=== PATIENT | male | born 1980 | race African-American/Black ===

== ENCOUNTER 2017-11-05 07:35 | Emergency (ER) | payer MEDICAID ==
[~2017-11-05] VITALS: Ht 165.1 cm; Wt 99.8 kg
[~2017-11-05 07:35] MED LIST: HYDR25TA4 PO; LORA-654 GT; NIFE90TA30 PO
[2017-11-05 08:04] LABS: Basophils # (auto) 0.1 uL; Basophils % (auto) 1.6 % (0.0-2.0); Eosinophils # (auto) 0.3 uL; Hematocrit 40.3 % (41.0-53.0); Hemoglobin 13.2 g/dL (13.5-17.5); Mean Corpuscular Hemoglobin 24.2 pg (28.0-32.0); Mean Corpuscular Hgb Conc. 32.8 g/dL (32.0-36.0); Mean Corpuscular Volume 73.8 fL (80.0-100.0); Monocytes # (auto) 0.9 uL; Monocytes % (auto) 10.9 % (0.0-12.0); Neutrophils # (auto) 4.5 uL; Neutrophils % (auto) 57.5 % (37.0-80.0); Nucleated Red Blood Cells % 0.1 %; Platelet Count (auto) 258 10^3/uL (140-450); Red Blood Cells 5.46 10^6/uL (4.5-5.90); Red Cell Distribution Width 16.7 % (11.8-14.3); White Blood Cell 7.9 10^3/uL (4.4-10.8)
[2017-11-05 08:38] LABS: Alanine Aminotransferase 292 U/L (16-61); Albumin 3.7 g/dL (3.4-5.0); Alkaline Phosphatase 133 U/L (45-117); Anion Gap 20 (5-15); Aspartate Aminotransferase 343 U/L (15-37); BUN/Creatinine Ratio 6.7; Bilirubin, Total 0.8 mg/dL (0.2-1.0); Blood Urea Nitrogen 7 mg/dL (7-18); Calcium 8.8 mg/dL (8.5-10.1); Carbon Dioxide 20 mmol/L (21-32); Chloride 94 mmol/L (98-107); GFR African American 102 mL/min; GFR Non-African American 84 mL/min; Glucose 110 mg/dL (74-106); Sodium 134 mmol/L (136-145); Total Protein 8.8 g/dL (6.4-8.2)
[2017-11-05 08:44] LABS: Potassium 2.4 mmol/L (3.5-5.1)
[2017-11-05] MEDS ORDERED: SODIUM CHLORIDE 0.9% 1,000 ML IV ONE ×2 (09:26)
[2017-11-05] MEDS ORDERED: POTASSIUM CHL 10% (20 MEQ/15ML) 15ml ORAL SOLN PO ONE ×2 (09:30→11:30)
[2017-11-05 10:38] VITALS: BP 151/94
[2017-11-05 10:59] LABS: Urine Bacteria NONE SEEN /hpf (None Seen); Urine Blood TRACE /uL (Negative); Urine Hyaline Cast FEW /lpf (0 - 2); Urine Mucus FEW (None Seen); Urine Specific Gravity 1.013 (1.001-1.035); Urine WBC 3 /hpf (0 - 3)
[2017-11-05 11:02] LABS: Amphetamine Screen, Urine NEGATIVE (NEGATIVE); Barbiturate Scree,Urine NEGATIVE (NEGATIVE); Benzodiazephine Screen, Urine NEGATIVE (NEGATIVE); Cannabinoid Screen, Urine NEGATIVE (NEGATIVE); Cocaine Screen, Urine NEGATIVE (NEGATIVE); Opiate Scree,Urine NEGATIVE (NEGATIVE); Phencyclidine Screen, Urine NEGATIVE (NEGATIVE)
== END 2017-11-05 12:01 | disposition home or self-care (01) ==
LOC: ER 07:41
DX: E87.6 Hypokalemia (principal); I10 Essential (primary) hypertension; R06.02 Shortness of breath; Z88.1 Allergy status to other antibiotic agents; Z79.899 Other long term (current) drug therapy
CPT/HCPCS: 36415; 70450; 80053; 80307; 81001; 84132; 84484; 85025; 93005; 96360; 96361; 99285; J7030

== ENCOUNTER 2018-04-02 16:43 | Emergency (ER) | payer MEDICAID ==
[~2018-04-02] VITALS: Ht 165.1 cm; Wt 102.1 kg
[2018-04-02 18:02] LABS: Urine Bacteria NONE SEEN /hpf (None Seen); Urine Blood TRACE /uL (Negative); Urine Specific Gravity 1.011 (1.001-1.035); Urine WBC 2 /hpf (0 - 3)
[2018-04-02 18:04] LABS: Eosinophils # (auto) 0.1 uL; Eosinophils % (auto) 0.6 % (0.0-7.0); Lymphocytes # (auto) 3.2 uL; Mean Corpuscular Volume 77.4 fL (80.0-100.0); Neutrophils # (auto) 5.5 uL; Nucleated Red Blood Cells % 0.1 %
[2018-04-02 18:06] LABS: Basophils # (auto) 0.2 uL; Basophils % (auto) 1.7 % (0.0-2.0); Hematocrit 39.2 % (41.0-53.0); Hemoglobin 13.2 g/dL (13.5-17.5); Lymphocytes % (auto) 33.4 % (10.0-50.0); Mean Corpuscular Hgb Conc. 33.6 g/dL (32.0-36.0); Monocytes # (auto) 0.7 uL; Monocytes % (auto) 6.8 % (0.0-12.0); Neutrophils % (auto) 57.5 % (37.0-80.0); Platelet Count (auto) 308 10^3/uL (140-450); Red Blood Cells 5.06 10^6/uL (4.5-5.90); Red Cell Distribution Width 16.5 % (11.8-14.3); White Blood Cell 9.6 10^3/uL (4.4-10.8)
[2018-04-02 18:16] LABS: Alanine Aminotransferase 74 U/L (16-61); Albumin 3.8 g/dL (3.4-5.0); Anion Gap 12 (5-15); Aspartate Aminotransferase 79 U/L (15-37); BUN/Creatinine Ratio 7.7; Blood Urea Nitrogen 6 mg/dL (7-18); Calcium 7.8 mg/dL (8.5-10.1); Carbon Dioxide 24 mmol/L (21-32); Chloride 102 mmol/L (98-107); GFR African American 143 mL/min; GFR Non-African American 118 mL/min; Glucose 98 mg/dL (74-106); Potassium 3.2 mmol/L (3.5-5.1); Sodium 138 mmol/L (136-145)
[2018-04-02 18:18] LABS: Amphetamine Screen, Urine NEGATIVE (NEGATIVE); Barbiturate Scree,Urine NEGATIVE (NEGATIVE); Benzodiazephine Screen, Urine NEGATIVE (NEGATIVE); Cannabinoid Screen, Urine NEGATIVE (NEGATIVE); Cocaine Screen, Urine NEGATIVE (NEGATIVE); Opiate Scree,Urine NEGATIVE (NEGATIVE); Phencyclidine Screen, Urine NEGATIVE (NEGATIVE)
[2018-04-02 18:21] LABS: Alkaline Phosphatase 105 U/L (45-117); Bilirubin, Total 0.5 mg/dL (0.2-1.0); Total Protein 8.5 g/dL (6.4-8.2)
[2018-04-02 20:10] VITALS: BP 141/84
== END 2018-04-02 20:32 | disposition home or self-care (01) ==
LOC: ER 16:52
DX: F41.9 Anxiety disorder, unspecified (principal); F10.929 Alcohol use, unspecified with intoxication, unspecified; I10 Essential (primary) hypertension; Y90.0 Blood alcohol level of less than 20 mg/100 ml; Z88.1 Allergy status to other antibiotic agents
CPT/HCPCS: 36415; 70450; 71046; 80053; 80307; 81001; 84484; 85025; 93005

== ENCOUNTER 2018-06-15 07:39 | Emergency (ER) | payer MEDICAID ==
[~2018-06-15] VITALS: Ht 162.6 cm; Wt 102.2 kg
[2018-06-15 08:02] VITALS: BP 136/87
[2018-06-15 09:22] LABS: Urine Bacteria FEW /hpf (None Seen); Urine Blood 3+ /uL (Negative); Urine Hyaline Cast MANY /lpf (0 - 2); Urine Mucus FEW (None Seen); Urine Specific Gravity 1.025 (1.001-1.035); Urine WBC 20 /hpf (0 - 3)
== END 2018-06-15 09:57 | disposition home or self-care (01) ==
LOC: ER 07:39
DX: R19.7 Diarrhea, unspecified (principal); N39.0 Urinary tract infection, site not specified; R21 Rash and other nonspecific skin eruption; M79.642 Pain in left hand; M79.641 Pain in right hand; Z88.1 Allergy status to other antibiotic agents
CPT/HCPCS: 81001; 82962

== ENCOUNTER 2018-11-25 19:48 | Emergency (ER) | payer MEDICAID ==
[~2018-11-25] VITALS: Ht 162.6 cm; Wt 103.4 kg
[2018-11-25 21:00] LABS: Basophils # (auto) 0.1 uL; Basophils % (auto) 0.3 % (0.0-2.0); Eosinophils # (auto) 0 uL; Eosinophils % (auto) 0.2 % (0.0-7.0); Neutrophils # (auto) 13.5 uL
[2018-11-25 21:01] LABS: Hematocrit 41.2 % (41.0-53.0); Hemoglobin 13.6 g/dL (13.5-17.5); Lymphocytes % (auto) 6.3 % (10.0-50.0); Mean Corpuscular Hemoglobin 26.1 pg (28.0-32.0); Mean Corpuscular Hgb Conc. 33.1 g/dL (32.0-36.0); Monocytes # (auto) 1.3 uL; Monocytes % (auto) 8.3 % (0.0-12.0); Neutrophils % (auto) 84.9 % (37.0-80.0); Platelet Count (auto) 171 10^3/uL (140-450); Red Blood Cells 5.22 10^6/uL (4.5-5.90); Red Cell Distribution Width 15.7 % (11.8-14.3); White Blood Cell 15.9 10^3/uL (4.4-10.8)
[2018-11-25 21:02] LABS: Urine Bacteria NONE SEEN /hpf (None Seen); Urine Blood 1+ /uL (Negative); Urine Specific Gravity 1.022 (1.001-1.035); Urine WBC 6 /hpf (0 - 3)
[2018-11-25 21:18] LABS: Albumin 4.1 g/dL (3.4-5.0)
[2018-11-25 21:20] LABS: BUN/Creatinine Ratio 13.7; Bilirubin, Total 1.5 mg/dL (0.2-1.0); Total Protein 8.9 g/dL (6.4-8.2)
[2018-11-25 21:21] LABS: Amphetamine Screen, Urine NEGATIVE (NEGATIVE); Barbiturate Scree,Urine NEGATIVE (NEGATIVE); Benzodiazephine Screen, Urine NEGATIVE (NEGATIVE); Cannabinoid Screen, Urine NEGATIVE (NEGATIVE); Cocaine Screen, Urine NEGATIVE (NEGATIVE); Opiate Scree,Urine NEGATIVE (NEGATIVE); Phencyclidine Screen, Urine NEGATIVE (NEGATIVE)
[2018-11-26] MEDS ORDERED: SODIUM CHLORIDE 0.9% 2,000 ML IV ONE (02:15)
[2018-11-26] MEDS ORDERED: POTASSIUM EFFERVESENT TAB 25 MEQ PO ONE (02:15)
[2018-11-26] MEDS ORDERED: LORazepam 2MG/ML-1ML VIAL IV ONE (02:15)
[2018-11-26] MEDS ORDERED: PANTOPRAZOLE 40 MG/10 ML VIAL INJ IV ONE (02:15)
[2018-11-26] MEDS ORDERED: THIAMINE 100mg/ml INJ (200mg/2ml VIAL) IV ONE (02:15)
[2018-11-26] MEDS ORDERED: ONDANSETRON HCL 4 MG/2 ML VIAL IV ONE (02:15)
[2018-11-26] MEDS ORDERED: FAMOTIDINE (10MG/ML) 2ML VL IV ONE (02:45)
[2018-11-26 04:14] VITALS: BP 150/83
== END 2018-11-26 05:08 | disposition home or self-care (01) ==
LOC: ER 19:52
DX: K70.9 Alcoholic liver disease, unspecified (principal); F10.239 Alcohol dependence with withdrawal, unspecified; I10 Essential (primary) hypertension; Z88.0 Allergy status to penicillin; Z79.899 Other long term (current) drug therapy
CPT/HCPCS: 36415; 80053; 80307; 80320; 81001; 85025; 93005; 96361; 96374; 96375; 99284; J2060; J2405; J3411; J3490; J7030

== ENCOUNTER 2023-09-25 13:00 | Inpatient (IN) | payer MEDICAID ==
[~2023-09-25] VITALS: Ht 165.1 cm; Wt 110.0 kg
[~2023-09-25 13:00] MED LIST changes: +LORA-1121 GT; -LORA-654 GT; -NIFE90TA30 PO; +NIFE90TA75 PO
[2023-09-25] MEDS: THIAMINE 100mg/ml INJ (200mg/2ml VIAL) IV ONE (14:25)
[2023-09-25] MEDS: LORazepam 2MG/ML-1ML VIAL IV ONE (14:25)
[2023-09-25] MEDS: SODIUM CHLORIDE 0.9% 1,000 ML IV ONE ×2 (14:26)
[2023-09-25 14:39] VITALS: PULSE 82; RESP 20; O2SAT 96
[2023-09-25 14:42] LABS: Basophils # (auto) 0.1 10 ^3/uL (0-0.2); Eosinophils # (auto) 0.2 10 ^3/uL (0-0.8); Monocytes # (auto) 0.4 10 ^3/uL (0-1.3); Red Cell Distribution Width 15.1 % (11.8-14.3); White Blood Cell 6.1 10^3/uL (4.4-10.8)
[2023-09-25 14:44] LABS: Basophils % (auto) 1.1 % (0.0-2.0); Eosinophils % (auto) 3.1 % (0.0-7.0); Hematocrit 43.2 % (41.0-53.0); Hemoglobin 14.2 g/dL (13.5-17.5); Mean Corpuscular Hemoglobin 26.4 pg (28.0-32.0); Mean Corpuscular Hgb Conc. 32.8 g/dL (32.0-36.0); Mean Corpuscular Volume 80.7 fL (80.0-100.0); Monocytes % (auto) 6.3 % (0.0-12.0); Neutrophils # (auto) 2.4 10 ^3/uL (1.6-8.6); Neutrophils % (auto) 39.5 % (37.0-80.0); Nucleated Red Blood Cells % 0.1 %; Red Blood Cells 5.36 10^6/uL (4.5-5.90)
[2023-09-25 14:56] LABS: Chloride 107 mmol/L (98-107); Potassium 3.7 mmol/L (3.5-5.1); Sodium 140 mmol/L (136-145)
[2023-09-25 14:57] LABS: Anion Gap 5 (5-15); Calcium 9.1 mg/dL (8.5-10.1); Carbon Dioxide 28 mmol/L (20-30)
[2023-09-25 15:02] LABS: BUN/Creatinine Ratio 8.1 (10.0-20.0); Blood Urea Nitrogen 7 mg/dL (9-23); Glucose 109 mg/dL (74-106)
[2023-09-25 15:03] LABS: Blood Alcohol 234.9 mg/dL (<10)
[2023-09-25] MEDS ORDERED: LORazepam 2MG/ML-1ML VIAL IV PRN ×2 (18:15)
[2023-09-25] MEDS ORDERED: ONDANSETRON HCL 4 MG/2 ML VIAL IV PRN (18:15)
[2023-09-25] MEDS ORDERED: MORPHINE SULFATE INJ 2 MG/ml SYRG IV PRN (18:15)
[2023-09-25] MEDS ORDERED: DOCUSATE SOD 100 MG CAP PO PRN (18:15)
[2023-09-25] MEDS: SODIUM CHLORIDE 0.9% 1,000 ML IV SCH (19:00)
[2023-09-25 19:41] VITALS: BP 125/79; PULSE 107; RESP 18; TEMP 98.3; O2SAT 98
[2023-09-25] MEDS: chlordiazePOXIDE HCL 25 MG CAP PO SCH (20:08)
[2023-09-26] MEDS ORDERED: chlordiazePOXIDE HCL 25 MG CAP PO SCH (10:00)
[2023-09-26] MEDS ORDERED: FOLIC ACID 1 MG, MAGNESIUM SULF SDV 50% 8 MEQ, MULTIPLE VITAMIN 10 ML, THIAMINE INJ 100... INJ SCH (18:00)
[2023-09-27] MEDS ORDERED: chlordiazePOXIDE HCL 25 MG CAP PO SCH (10:00)
[2023-09-28] MEDS ORDERED: chlordiazePOXIDE HCL 25 MG CAP PO SCH (07:00)
== END 2023-09-25 21:29 | disposition left against medical advice (07) | DRG 770 ==
LOC: ER 13:00 → OVERFLOW 18:11
PROVIDERS: ADMIT Nurse Practitioner Family; ATTEND Nurse Practitioner Family
DX: F10.139 Alcohol abuse with withdrawal, unspecified (principal); F10.129 Alcohol abuse with intoxication, unspecified; F41.9 Anxiety disorder, unspecified; I10 Essential (primary) hypertension; Z53.29 Procedure and treatment not carried out because of patient's decision for other reasons; Y90.7 Blood alcohol level of 200-239 mg/100 ml; Z79.899 Other long term (current) drug therapy; Z88.1 Allergy status to other antibiotic agents; Z88.0 Allergy status to penicillin
CPT/HCPCS: 36415; 80048; 80320; 82607; 85025; 96361; 96374; 96375; G0378

== ENCOUNTER 2024-02-14 08:45 | Emergency (ER) | payer MEDICAID ==
[~2024-02-14] VITALS: Ht 162.6 cm; Wt 108.7 kg
[2024-02-14 09:06] VITALS: BP 138/101; PULSE 130; RESP 16; TEMP 98.8; O2SAT 97
[2024-02-14] MEDS: CLINDAMYCIN 900MG IV 50 ML IV ONE (09:53)
[2024-02-14] MEDS ORDERED: IBUP1TAB5 PO (10:43)
[2024-02-14] MEDS ORDERED: CLIN150C PO (10:43)
== END 2024-02-14 11:37 | disposition home or self-care (01) ==
LOC: ER 08:45
DX: L03.211 Cellulitis of face (principal); K02.9 Dental caries, unspecified; I10 Essential (primary) hypertension; F41.9 Anxiety disorder, unspecified; Z79.899 Other long term (current) drug therapy; Z88.0 Allergy status to penicillin
CPT/HCPCS: 96365; 99284; J3490

== ENCOUNTER 2024-05-13 10:00 | Inpatient (IN) | payer MEDICAID ==
[~2024-05-13] VITALS: Ht 162.6 cm; Wt 114.0 kg
[~2024-05-13 10:00] MED LIST changes: +CLIN150C PO; +IBUP1TAB5 PO
--- NOTE | 2024-05-13 10:48 | DVH ---
EXAM: XY CHEST TWO VIEWS ROUTINE CLINICAL HISTORY: COUGH FEVER COMPARISON: None TECHNIQUE: Frontal and lateral view of the chest was obtained FINDINGS: Lines and Tubes: None Lungs: Diffuse consolidative opacities. Pleura: No effusion. No pneumothorax. Cardiomediastinal contours: Unremarkable Bones: No acute osseous abnormality. IMPRESSION: Multifocal pneumonia.
--- NOTE | 2024-05-13 12:27 | ED.PDOC ---
SOB-HPI HPI Comments A 44 YEAR OLD MALE PRESENTS TO THE ED WITH COMPLAINT OF COUGH. PATIENT STATES HE HAS BEEN EXPERIENCING A COUGH AND CONGESTION FOR THE PAST 1 WEEK AND NOTES HIS SYMPTOMS ARE WORSE FOR THE PAST 2 DAYS. WHEN COUGH, PT C/O UPPER CHEST TIGHTNESS AND THROAT PAIN. PATIENT DENIES FEVER, CHILLS, SHORTNESS OF BREATH, CHEST PAIN, ABDOMINAL PAIN, NAUSEA, VOMITING, HEADACHE, OR OTHER COMPLAINTS. NO OTHER SYMPTOMS OR MODIFYING FACTORS AT THIS TIME. PATIENT IS ALERT, ORIENTED X 4, AND HAS STEADY GAIT. Chief Complaint: Cough Time Seen by MD: 10:31 Primary Care Provider: ANTHONYK Reviewed notes: Nurses Notes, Medications, Allergies Information Source: Patient Mode of Arrival: Ambulatory Severity: Moderate Timing: Days Duration: Since onset, Days Context: Spontaneous Onset PE Risk Factors: None History of: Recent URI Prehospital treatment: None Modifying Factors: Nothing Associated Signs and Symptoms: Cough, Nasal Congestion, Sore Throat If cough with SOB: Productive Past Medical History PAST MEDICAL HISTORY: Anxiety, HTN Surgical History: Denies all surgeries Family History Family History: No family hx of HTN Social History Smoker: Non-Smoker Alcohol: Heavy Drugs: Denies Drug Use Lives In: Home Constitutional: denies: chills, diaphoresis, fatigue, fever, malaise, sweats, weakness, others EENTM: reports: nose congestion, throat pain; denies: blurred vision, double vision, ear bleeding, ear discharge, ear drainage, ear pain, ear ringing, eye pain, eye redness, hearing loss, mouth pain, mouth swelling, nasal discharge, nose bleeding, nose pain, photophobia, tearing, throat swelling, voice changes, others Respiratory: reports: cough; denies: hemoptysis, orthopnea, SOB at rest, shortness of breath, SOB with excertion, stridor, wheezing, others Cardiovascular: denies: chest pain, dizzy spells, diaphoresis, Dyspnea on exertion, edema, irregular heart beat, left arm pain, lightheadedness, palpitations, PND, syncope, others Gastrointestinal: denies: abdomen distended, abdominal pain, blood streaked bowels, constipated, diarrhea, dysphagia, difficulty swallowing, hematemesis, melena, nausea, poor appetite, poor fluid intake, rectal bleeding, rectal pain, vomiting, others Genitourinary: denies: burning, dysuria, flank pain, frequency, hematuria, incontinence, penile discharge, penile sore, pain, testicle pain, testicle swelling, urgency, others Neurological: denies: dizziness, fainting, headache, left sided numbness, left sided weakness, numbness, paresthesia, pre-existing deficit, right sided numbness, right sided weakness, seizure, speech problems, tingling, tremors, weakness, others Musculoskeletal: denies: back pain, gout, joint pain, joint swelling, muscle pain, muscle stiffness, neck pain, others Integumetry: denies: bruises, change in color, change in hair/nails, dryness, laceration, lesions, lumps, rash, wounds, others Allergic/Immunocompromised: denies: Difficulty Healing, Frequent Infections, Hives, Itching, others Hematologic/Lymphatic: denies: anemia, blood clots, easy bleeding, easy bruising, swollen glands, others Endocrine: denies: excessive hunger, excessive sweating, excessive thirst, excessive urination, flushing, intolerance to cold, intolerance to heat, unexplained weight gain, unexplained weight loss, others Psychiatric: denies: anxiety, bipolar disorder, depression, hopeless, panic disorder, schizophrenia, sleepless, suicidal, others All Other Systems: Reviewed and Negative Physical Exam General Appearance: No Apparent Distress, Obese HEENT: PERRL/EOMI, Pharyngeal Erythema (MILD TONSILLAR SWELLING, NO EXUDATES. ), TMs Normal Neck: Full Range of Motion, Non-Tender, Normal, Normal Inspection Respiratory: Chest Non-Tender, Decreased Breath Sounds, No Accessory Muscle Use, No Respiratory Distress, Rhonchi Cardiovascular: No Edema, No JVD, No Murmur, No Gallop, Normal Peripheral Pulses, Regular Rate/Rhythm Breast Exam: Deferred Gastrointestinal: No Organomegaly, Non Tender, No Pulsatile Mass, Normal Bowel Sounds, Soft Genitalia: Deferred Pelvic: Deferred Rectal: Deferred Extremities: No calf tenderness, Normal capillary refill, Normal inspection, Normal range of motion, Non-tender, No pedal edema Musculoskeletal : Apperance: Normal Neurologic: Alert, mail machine operator II-XII nml as Tested, No Motor Deficits, Normal Affect, Normal Mood, No Sensory Deficits Cerebellar Function: Normal Reflexes: Normal Skin: Dry, Normal Color, Warm Peripheral Pulses: 2+ carotid (R), 2+ carotid (L) Lymphatic: No Adenopathy Was a procedure done? Was a procedure done?: No Differential Dx Differential Diagnosis: Bronchitis, Pneumonia, Sinusitis, Allergic Rhinitis, Otitis Media, Pharyngitis, URI X-Ray, Labs, Meds, VS Vital Signs Date Time Temp Pulse Resp B/P (MAP) Pulse Ox O2 Delivery O2 Flow Rate FiO2 05/13/24 12:31 98.6 85 19 121/84 (96) 85 98.6 05/13/24 12:31 85 19 87 Room Air 05/13/24 10:07 99.8 82 18 123/87 (99) 98 05/13/24 10:07 99.8 82 18 123/87 (99) 98 99.8 Lab Test 05/13/24 12:23 05/13/24 12:00 Range/Units White Blood Count 3.4 L 4.4-10.8 10^3/uL Red Blood Count 5.07 4.5-5.90 10^6/uL Hemoglobin 13.7 13.5-17.5 g/dL Hematocrit 42.3 41.0-53.0 % Mean Corpuscular Volume 83.4 80.0-100.0 fL Mean Corpuscular Hemoglobin 27.0 L 28.0-32.0 pg Mean Corpuscular Hemoglobin Concent 32.4 32.0-36.0 g/dL Red Cell Distribution Width 15.1 H 11.8-14.3 % Platelet Count 185 140-450 10^3/uL Mean Platelet Volume 8.3 6.9-10.8 fL Neutrophils (%) (Auto) 46.9 37.0-80.0 % Lymphocytes (%) (Auto) 39.6 10.0-50.0 % Monocytes (%) (Auto) 12.8 H 0.0-12.0 % Eosinophils (%) (Auto) 0.0 0.0-7.0 % Basophils (%) (Auto) 0.7 0.0-2.0 % Neutrophils # (Auto) 1.6 1.6-8.6 10 ^3/uL Lymphocytes # (Auto) 1.3 0.4-5.4 10 ^3/uL Monocytes # (Auto) 0.4 0-1.3 10 ^3/uL Eosinophils # (Auto) 0 0-0.8 10 ^3/uL Basophils # (Auto) 0 0-0.2 10 ^3/uL Nucleated Red Blood Cells 0.3 % Sodium Level 143 136-145 mmol/L Potassium Level 3.7 3.5-5.1 mmol/L Chloride Level 109 H 98-107 mmol/L Carbon Dioxide Level 30 20-31 mmol/L Anion Gap 4 L 5-15 Blood Urea Nitrogen 9 9-23 mg/dL Creatinine 1.22 0.700-1.30 mg/dL Glomerular Filtration Rate Calc 75 >90 mL/min BUN/Creatinine Ratio 7.4 L 10.0-20.0 Serum Glucose 125 H 74-106 mg/dL Lactic Acid Level 1.8 0.4-2.0 mmol/L Calcium Level 8.3 L 8.7-10.4 mg/dL SARS-CoV-2 Antigen (Rapid) Negative NEGATIVE Group A Streptococcus Rapid Negative Current Medications Medications (Trade) Dose Ordered Sig/Dimas Route Start Time Stop Time Status Last Admin Sodium Chloride 1,000 ml @ 150 mls/hr Q6H40M ONCE IV 05/13/24 12:15 05/13/24 18:54 05/13/24 12:41 Ceftriaxone Sodium 50 ml @ 100 mls/hr ONCE ONCE IV 05/13/24 12:15 05/13/24 12:44 DC 05/13/24 12:49 Azithromycin 250 ml @ 125 mls/hr ONCE ONCE IV 05/13/24 12:15 05/13/24 14:14 DC 05/13/24 12:59 EXAM: XY CHEST TWO VIEWS ROUTINE CLINICAL HISTORY: COUGH FEVER COMPARISON: None TECHNIQUE: Frontal and lateral view of the chest was obtained FINDINGS: Lines and Tubes: None Lungs: Diffuse consolidative opacities. Pleura: No effusion. No pneumothorax. Cardiomediastinal contours: Unremarkable Bones: No acute osseous abnormality. IMPRESSION: Multifocal pneumonia. ATED BY: ORI MAS MD DICTATED DATE/TIME: 05/13/241046 SIGNED BY: ORI MAS MD SIGNED DATE/TIME: 05/13/241046 CC: X-Ray, Labs, Meds, VS Comment EXTERNAL MEDICAL RECORDS REVIEWED: [NONE] INDEPENDENT HISTORIANS: [NONE] SOCIAL DETERMINANTS OF HEALTH: [NONE] LABS ORDERED: CBC, BMP, LACTIC ACID, BLOOD CULTURE, COVID-19 ANTIGEN, INFLUENZA A/B REVIEWED AND INTERPRETED RESULTS: NORMAL IMAGING ORDERED: XR CHEST TREATMENTS ORDERED: NS 1L IV, ROCEPHIN 1G IV, AZITHROMYCIN 500MG IV PROCEDURES PERFORMED: NONE CRITICAL CARE TIME: NONE I HAVE DISCUSSED THE PATIENT WITH THE ATTENDING PHYSICIAN DR. GREGORY AND HE AGREES WITH THE PATIENT'S PLAN OF CARE. UPON MY PHYSICAL EXAMINATION, THE PATIENT HAS RHONCHI AND DIMINISHED BREATH SOUN DS NOTED ON AUSCULTATION BUT WAS IN NO ACUTE RESPIRATORY DISTRESS AT THIS TIME. MY DIFFERENTIAL DIAGNOSIS INCLUDES, URI, BRONCHITIS, PNEUMONIA, TONSILLITIS, OTITIS MEDIA, SINUSITIS. A CHEST X-RAY WAS ORDERED FOR THE PATIENT WHICH REVEALED MULTIFOCAL PNEUMONIA. DUE TO THE PATIENT'S X-RAY REVEALING MULTIFOCAL PNEUMONIA SO I HAVE DETERMINED THE PATIENT NEEDS TO BE AND MANAGED FOR FURTHER TREATMENT AND EVALUATION. PATIENT WAS MEDICATED HERE IN THE ED WAS 1 L NORMAL SALINE IV, ROCEPHIN 1 G IV, AND AZITHROMYCIN 500 MG IV. THE ON-CALL ADMITTING PHYSICIAN WILL BE CONTACTED FOR ADMISSION OF THIS PATIENT. Images Reviewed?: Images reviewed and evaluated by me Time of 1ST Reevaluation: 12:00 Reevaluation 1ST: Unchanged Patient Education/Counseling: Diagnosis, Treatment Family Education/Counseling: Diagnosis, Treatment Departure 1 Departure Time of Disposition: 12:00 Impression: Primary Impression: Multifocal pneumonia Additional Impression: Hypoxia Disposition: ADMITTED INPATIENT Condition: Serious Critical Care Note Critical Care Time?: No Stability Stability form required: No Unstable for transfer: Requires medication, ED Physician Assesment, Possible r apid decline Heart Score Heart Score: Heart Score Response (Comments) Value History Slightly Suspicious 0 EKG N/A 0 Age <45 0 Risk Factors N/A 0 Troponin N/A 0 Total 0 I personally scribed for LIVIER ARCEO ([email or web address]) on 05/13/24 at 12:27. Electronically submitted by Erich Perez ([email or web address]). I personally scribed for LIVIER ARCEO ([email or web address]) on 05/13/24 at 13:11. Electronically submitted by [facility] ([facility] I personally scribed for CHAVA GREGORY MD ([email or web address]) on 05/13/24 at 14:30. Electronically submitted by Erich Perez ([facility]). LIVIER ARCEO May 13, 2024 12:27 CHAVA GREGORY MD May 13, 2024 14:30
[2024-05-13] MEDS: SODIUM CHLORIDE 0.9% 1,000 ML IV ONE ×2 (12:41→14:45)
[2024-05-13] MEDS: cefTRIAXone 1GM/50ML D5W 50 ML IV ONE (12:49)
[2024-05-13 12:50] LABS: Basophils # (auto) 0 10 ^3/uL (0-0.2); Basophils % (auto) 0.7 % (0.0-2.0); Eosinophils # (auto) 0 10 ^3/uL (0-0.8); Hematocrit 42.3 % (41.0-53.0); Hemoglobin 13.7 g/dL (13.5-17.5); Lymphocytes # (auto) 1.3 10 ^3/uL (0.4-5.4); Lymphocytes % (auto) 39.6 % (10.0-50.0); Mean Corpuscular Hgb Conc. 32.4 g/dL (32.0-36.0); Mean Corpuscular Volume 83.4 fL (80.0-100.0); Monocytes # (auto) 0.4 10 ^3/uL (0-1.3); Monocytes % (auto) 12.8 % (0.0-12.0); Neutrophils # (auto) 1.6 10 ^3/uL (1.6-8.6); Neutrophils % (auto) 46.9 % (37.0-80.0); Nucleated Red Blood Cells % 0.3 %; Platelet Count (auto) 185 10^3/uL (140-450); Red Blood Cells 5.07 10^6/uL (4.5-5.90); Red Cell Distribution Width 15.1 % (11.8-14.3); White Blood Cell 3.4 10^3/uL (4.4-10.8)
[2024-05-13] MEDS: AZITHROMYCIN 500MG/ 250ML 250 ML IV ONE (12:59)
[2024-05-13] MEDS: ONDANSETRON HCL 4 MG/2 ML VIAL IV ONE (13:15)
[2024-05-13 13:20] LABS: Potassium 3.7 mmol/L (3.5-5.1); Sodium 143 mmol/L (136-145)
[2024-05-13 13:21] LABS: Anion Gap 4 (5-15); Carbon Dioxide 30 mmol/L (20-31); Chloride 109 mmol/L (98-107)
[2024-05-13 13:22] LABS: Calcium 8.3 mg/dL (8.7-10.4)
[2024-05-13 13:26] LABS: BUN/Creatinine Ratio 7.4 (10.0-20.0)
[2024-05-13 13:27] LABS: Rapid Strep A Screen-Throat Negative
[2024-05-13 13:29] LABS: Blood Urea Nitrogen 9 mg/dL (9-23); Glucose 125 mg/dL (74-106)
[2024-05-13 13:43] LABS: COVID19 ANTIGEN SOFIA FIA NEGATIVE (NEGATIVE)
[2024-05-13] MEDS ORDERED: MORPHINE SULFATE INJ 2 MG/ml SYRG IV PRN ×2 (14:45)
[2024-05-13] MEDS ORDERED: cefTRIAXone 1GM/50ML D5W 50 ML IV ONE (14:45)
[2024-05-13] MEDS ORDERED: cefTRIAXone 2GM/50ML D5W 50 ML IV ONE (14:45)
[2024-05-13] MEDS ORDERED: FAMOTIDINE INJECTION 40 MG in SODIUM CHL 0.9% 100 ML IV ONE (14:45)
[2024-05-13] MEDS ORDERED: FAMOTIDINE (10MG/ML) 2ML VL IV ONE (14:45)
[2024-05-13] MEDS ORDERED: DOCUSATE SOD 100 MG CAP PO PRN (14:45)
[2024-05-13] MEDS ORDERED: NITROGLYCERIN 0.4 MG SL TAB SL PRN (14:45)
--- NOTE | 2024-05-13 15:16 | DVHHPRES ---
History of Present Illness Resident Creating Document: STACEY MORALES RESIDENT History of Present Illness Patient is 44 years old male with past medical history of hypertension, anxiety came with a complaint of cough and chest tightness and fever. As per patient he has been having cough with whitish mucus for last 5 days which has been getting worse lately. Patient also endorsed chest tightness and gargling and wheezing for last 2 days. Further inquiry patient reported fever for last 2 days at home up to 100.4 degree F. patient reported feeling chest tightness for last 2 days. Patient denied any sick contact, palpitation, acute joint pain or swelling, dysuria, abdominal pain, dysarthria or change in vision. Initial lab workup revealed leukopenia and WBC 3.4, chest x-ray revealed multifocal pneumonia. Past Medical History Hypertension, anxiety Past Surgical History none Family History Mom and dad both have hypertension Past Social History Personal History/ Social History- history of smoking, history of alcoholism, denies using drugs, lives with mother and father Review of Systems Review of Systems Patient was seen today at the bedside. Patient reports feeling chest tightness Cardiovascular- deny palpitation Gastrointestinal- denies any rectal bleeding, nausea or vomiting Musculoskeletal-denies acute joint swelling or tenderness or redness Neurological- denies acute dysarthria, dysphagia, change in vision Psychiatry- denies depression or SI or HI Skin- denies acute rash or purpura Allergies: Coded Allergies: Amoxicillin (Verified Allergy, Severe, 11/05/17) Medications Current Medications Medications Dose Ordered Sig/Dimas Route Start Time Stop Time Status Last Admin Dose Admin Docusate Sodium 100 mg BIDPRN PRN PO 05/13/24 14:45 Acetaminophen 650 mg Q6HP PRN PO 05/13/24 14:45 Morphine Sulfate 2 mg Q4HPRN PRN IV 05/13/24 14:45 Nitroglycerin 0.4 mg Q5MINP PRN SL 05/13/24 14:45 Morphine Sulfate 2 mg Q30M PRN IV 05/13/24 14:45 Azithromycin 250 ml @ 125 mls/hr DAILY IV 05/14/24 10:00 Future Hold Lorazepam 0.5 mg Q12HP PRN IV 05/13/24 14:45 Exam Vital Signs Vital Signs Date Time Temp Pulse Resp B/P (MAP) Pulse Ox O2 Delivery O2 Flow Rate FiO2 05/13/24 15:03 98.2 70 18 129/74 (92) 96 98.2 05/13/24 12:31 Room Air Exam General examination-patient was unable to complained of poor sentence HEENT- PEERLA, no acute nasal discharge Cardiovascular- S1-S2 audible, rate and rhythm regular, no murmur Respiratory-bilateral lung crackles with congestion in the mid and lower lung zone Gastrointestinal-nontender, bowel sound+. Nondistended Musculoskeletal-no acute joint swelling or tenderness or redness# Lower extremity- no leg edema Neurological- cranial nerves intact, no acute dysarthria or dysphagia Psychiatry- denies depression or SI or HI Skin- no acute rash or purpura Labs/Xrays Labs Test 05/13/24 12:23 05/13/24 12:00 Range/Units White Blood Count 3.4 L 4.4-10.8 10^3/uL Red Blood Count 5.07 4.5-5.90 10^6/uL Hemoglobin 13.7 13.5-17.5 g/dL Hematocrit 42.3 41.0-53.0 % Mean Corpuscular Volume 83.4 80.0-100.0 fL Mean Corpuscular Hemoglobin 27.0 L 28.0-32.0 pg Mean Corpuscular Hemoglobin Concent 32.4 32.0-36.0 g/dL Red Cell Distribution Width 15.1 H 11.8-14.3 % Platelet Count 185 140-450 10^3/uL Mean Platelet Volume 8.3 6.9-10.8 fL Neutrophils (%) (Auto) 46.9 37.0-80.0 % Lymphocytes (%) (Auto) 39.6 10.0-50.0 % Monocytes (%) (Auto) 12.8 H 0.0-12.0 % Eosinophils (%) (Auto) 0.0 0.0-7.0 % Basophils (%) (Auto) 0.7 0.0-2.0 % Neutrophils # (Auto) 1.6 1.6-8.6 10 ^3/uL Lymphocytes # (Auto) 1.3 0.4-5.4 10 ^3/uL Monocytes # (Auto) 0.4 0-1.3 10 ^3/uL Eosinophils # (Auto) 0 0-0.8 10 ^3/uL Basophils # (Auto) 0 0-0.2 10 ^3/uL Nucleated Red Blood Cells 0.3 % Sodium Level 143 136-145 mmol/L Potassium Level 3.7 3.5-5.1 mmol/L Chloride Level 109 H 98-107 mmol/L Carbon Dioxide Level 30 20-31 mmol/L Anion Gap 4 L 5-15 Blood Urea Nitrogen 9 9-23 mg/dL Creatinine 1.22 0.700-1.30 mg/dL Glomerular Filtration Rate Calc 75 >90 mL/min BUN/Creatinine Ratio 7.4 L 10.0-20.0 Serum Glucose 125 H 74-106 mg/dL Lactic Acid Level 1.8 0.4-2.0 mmol/L Calcium Level 8.3 L 8.7-10.4 mg/dL SARS-CoV-2 Antigen (Rapid) Negative NEGATIVE Group A Streptococcus Rapid Negative Assessment/Plan Assessment/Plan #Suspected sepsis due to pneumonia Gram-positive versus Gram-negative # acute hypoxic respiratory failure likely due to pneumonia Gram-positive versus Gram-negative # pneumonia Gram-positive versus Gram-negative # leukopenia likely due to sepsis # hypertension # anxiety leukopenia and WBC 3.4, chest x-ray revealed multifocal pneumonia. Pending blood culture and respiratory culture Continue ceftriaxone 1 g IV daily Continue azithromycin 500 mg IV daily max 5 days Continue nebulization as ordered NC O2 as required to keep SpO2>90% Continue other medication as prescribed Goals of care/advance care planning; FULL CODE; discussed with the patient >15 minutes PUD prophylaxis: Pepcid DVT prophylaxis: Patient ambulating PCP-Dr. LUTHER Plan discussed with Dr. Herring, nursing staff, patient Total time spent on patient evaluation, chart review, assessment and plan, discussion discussion >30 minutes Plan discussed with: Patient Plan discussed with: Patient, Other (RN) My Orders Orders - STACEY MORALES RESIDENT Procedure Category Date Status Time Admit ADMIT 05/13/24 Transmitted 14:31 Code Status CODE 05/13/24 Transmitted 14:31 Docusate Sodium PHA 05/13/24 In Process Capsule (Colace 14:45 Complete Blood Count LAB 05/14/24 Verified 04:00 Comprehensive LAB 05/14/24 Verified Metabolic Panel 04:00 Cardiac DIET 05/13/24 Transmitted Diet-2gna,Lofat,Lochol Dinner Acetaminophen Tablet PHA 05/13/24 In Process (Tylenol Tablet) 14:45 Morphine Sulfate PHA 05/13/24 In Process Injection 14:45 Nitroglycerin PHA 05/13/24 In Process Sublingual (Ntrostat 14:45 Morphine Sulfate PHA 05/13/24 In Process Injection 14:45 Oxygen By Nasal RT 05/13/24 Transmitted Cannula 14:31 Stat Ekg For Chest RUBIA 05/13/24 In Process Pain 14:31 Notify Md Of Changes RUBIA 05/13/24 In Process From Base 14:31 Dielectric Embossing Machine Operator For RUBIA 05/13/24 In Process 24 Hours 14:31 Emergency Dysrhythmia RUBIA 05/13/24 In Process Protocol 14:31 Rhythm Strips Once RUBIA 05/13/24 In Process Every Shift 14:31 Magnesium LAB 05/13/24 Logged 14:34 Thyroid Stimulating LAB 05/13/24 Logged Hormone 14:34 Respiratory Culture HOANG 05/13/24 Logged W/ Gs 14:34 Drug Screen LAB 05/13/24 Logged 14:34 Blood Alcohol LAB 05/13/24 Logged 14:34 Rapid Influenza A&B LAB 05/13/24 Logged 14:34 B-Type Natriuretic LAB 05/13/24 Logged Peptide 14:37 Ceftriaxone 1gm/50ml PHA 05/13/24 In Process D5w (Rocephin) 14:45 Ceftriaxone 2gm/50ml PHA 05/13/24 In Process D5w (Rocephin 2gm/5 14:45 Azithromycin 500mg/ PHA 05/14/24 In Process 250ml (Zithromax 50 10:00 Sodium Chloride 0.9% PHA 05/13/24 In Process 14:45 Lorazepam 2mg/Ml Inj PHA 05/13/24 In Process (Ativan Inj) 14:45 Urinalysis LAB 05/13/24 Logged 14:40 Date of Service: May 13, 2024 Billing Provider: CLAYTON HERRING MD Common Visit Codes: [id number] INP/OBS CARE (HIGH) STACEY MORALES RESIDENT May 13, 2024 15:16 CLAYTON HERRING MD May 13, 2024 17:25
[2024-05-13 15:42] LABS: Blood Alcohol 228.6 mg/dL (<10); Magnesium 2.1 mg/dL (1.6-2.6)
[2024-05-13] MEDS: FAMOTIDINE (10MG/ML) 2ML VL IV ONE (15:54)
[2024-05-13 16:12] LABS: Rapid Influenza B Negative (Negative)
[2024-05-13 16:14] LABS: Rapid Influenza A Positive (Negative)
[2024-05-13 19:15] VITALS: BP 127/85; PULSE 89; RESP 20; TEMP 100.3; O2SAT 96
[2024-05-13] MEDS ORDERED: OSELTAMIVIR 75 MG CAP PO ONE (19:15)
[2024-05-13 19:54] VITALS: PULSE 87; RESP 18; O2SAT 93
[2024-05-13] MEDS: OSELTAMIVIR 75 MG CAP PO SCH (20:24)
[2024-05-13] MEDS: ACETAMINOPHEN 325 MG TAB PO PRN (20:26)
[2024-05-13] MEDS ORDERED: NIFE1TAB30 PO (20:40)
[2024-05-13 21:00] VITALS: BP 137/79; PULSE 81; RESP 18; TEMP 98.9; O2SAT 86
[2024-05-13] MEDS: LORazepam 2MG/ML-1ML VIAL IV PRN (22:17)
[2024-05-13] MEDS: FAMOTIDINE (10MG/ML) 2ML VL IV SCH (22:35)
[2024-05-14 01:00] VITALS: BP 134/85; PULSE 98; RESP 19; TEMP 99.2; O2SAT 87
[2024-05-14 05:00] VITALS: BP 135/86; PULSE 97; RESP 20; TEMP 98.6; O2SAT 93
[2024-05-14 07:01] LABS: Basophils # (auto) 0 10 ^3/uL (0-0.2); Basophils % (auto) 0.6 % (0.0-2.0); Eosinophils # (auto) 0 10 ^3/uL (0-0.8); Hematocrit 38.9 % (41.0-53.0); Hemoglobin 13.3 g/dL (13.5-17.5); Lymphocytes # (auto) 1.8 10 ^3/uL (0.4-5.4); Lymphocytes % (auto) 41.1 % (10.0-50.0); Mean Corpuscular Hemoglobin 27.9 pg (28.0-32.0); Mean Corpuscular Hgb Conc. 34.1 g/dL (32.0-36.0); Mean Corpuscular Volume 81.8 fL (80.0-100.0); Monocytes # (auto) 0.5 10 ^3/uL (0-1.3); Monocytes % (auto) 10.8 % (0.0-12.0); Neutrophils # (auto) 2.1 10 ^3/uL (1.6-8.6); Neutrophils % (auto) 47.5 % (37.0-80.0); Nucleated Red Blood Cells % 0.8 %; Platelet Count (auto) 155 10^3/uL (140-450); Red Blood Cells 4.75 10^6/uL (4.5-5.90); White Blood Cell 4.4 10^3/uL (4.4-10.8)
[2024-05-14 07:10] LABS: Albumin 3.4 g/dL (3.2-4.8); Alkaline Phosphatase 71 U/L (46-116); Anion Gap 4 (5-15); BUN/Creatinine Ratio 9.3 (10.0-20.0); Blood Urea Nitrogen 9 mg/dL (9-23); Carbon Dioxide 31 mmol/L (20-31); Glucose 106 mg/dL (74-106); Potassium 3.9 mmol/L (3.5-5.1); Sodium 143 mmol/L (136-145)
[2024-05-14 07:11] LABS: Bilirubin, Total 0.3 mg/dL (0.2-1.0)
[2024-05-14 08:00] VITALS: PULSE 90; PULSE 91; RESP 18; O2SAT 93
[2024-05-14 08:49] LABS: Alanine Aminotransferase 57 U/L (7-40); Aspartate Aminotransferase 73 U/L (13-40); Calcium 8.5 mg/dL (8.7-10.4); Chloride 108 mmol/L (98-107)
[2024-05-14 09:00] VITALS: BP 128/77; PULSE 89; RESP 19; TEMP 98.4; O2SAT 90
[2024-05-14] MEDS ORDERED: AZITHROMYCIN 500MG/ 250ML 250 ML IV SCH (10:00)
[2024-05-14] MEDS: cefTRIAXone 1GM/50ML D5W 50 ML IV SCH (10:27)
[2024-05-14 12:25] VITALS: BP 111/65; PULSE 94; RESP 19; TEMP 99.2; O2SAT 92
[2024-05-14 13:00] VITALS: BP 111/65; PULSE 94; RESP 19; TEMP 98.6; O2SAT 91
[2024-05-14] MEDS ORDERED: AZIT-185 PO (14:35)
[2024-05-14] MEDS ORDERED: TAMIFLU PO (14:35)
--- NOTE | 2024-05-14 14:39 | DVHDSRES ---
Discharge Summary Date of Admission Resident Creating Document: STACEY MORALES RESIDENT May 13, 2024 at 14:31 Date of Discharge: May 14, 2024 Admitting Diagnosis Sepsis due to PNA Labs/Diagnostic Data: Laboratory Results Test 05/14/24 06:34 05/13/24 20:32 05/13/24 15:26 05/13/24 12:23 White Blood Count 4.4 10^3/uL (4.4-10.8) Red Blood Count 4.75 10^6/uL (4.5-5.90) Hemoglobin 13.3 g/dL (13.5-17.5) Hematocrit 38.9 % (41.0-53.0) Mean Corpuscular Volume 81.8 fL (80.0-100.0) Mean Corpuscular Hemoglobin 27.9 pg (28.0-32.0) Mean Corpuscular Hemoglobin Concent 34.1 g/dL (32.0-36.0) Red Cell Distribution Width 15.0 % (11.8-14.3) Platelet Count 155 10^3/uL (140-450) Mean Platelet Volume 8.0 fL (6.9-10.8) Neutrophils (%) (Auto) 47.5 % (37.0-80.0) Lymphocytes (%) (Auto) 41.1 % (10.0-50.0) Monocytes (%) (Auto) 10.8 % (0.0-12.0) Eosinophils (%) (Auto) 0.0 % (0.0-7.0) Basophils (%) (Auto) 0.6 % (0.0-2.0) Neutrophils # (Auto) 2.1 10 ^3/uL (1.6-8.6) Lymphocytes # (Auto) 1.8 10 ^3/uL (0.4-5.4) Monocytes # (Auto) 0.5 10 ^3/uL (0-1.3) Eosinophils # (Auto) 0 10 ^3/uL (0-0.8) Basophils # (Auto) 0 10 ^3/uL (0-0.2) Nucleated Red Blood Cells 0.8 % Sodium Level 143 mmol/L (136-145) Potassium Level 3.9 mmol/L (3.5-5.1) Chloride Level 108 mmol/L (98-107) Carbon Dioxide Level 31 mmol/L (20-31) Anion Gap 4 (5-15) Blood Urea Nitrogen 9 mg/dL (9-23) Creatinine 0.97 mg/dL (0.700-1.30) Glomerular Filtration Rate Calc 98 mL/min (>90) BUN/Creatinine Ratio 9.3 (10.0-20.0) Serum Glucose 106 mg/dL (74-106) Calcium Level 8.5 mg/dL (8.7-10.4) Total Bilirubin 0.3 mg/dL (0.2-1.0) Aspartate Amino Transferase (AST) 73 U/L (13-40) Alanine Aminotransferase (ALT) 57 U/L (7-40) Alkaline Phosphatase 71 U/L (46-116) Total Protein 6.0 g/dL (5.7-8.2) Albumin 3.4 g/dL (3.2-4.8) Influenza Type A Antigen Positive (Negative) Influenza Type B Antigen Negative (Negative) Lactic Acid Level 1.8 mmol/L (0.4-2.0) Magnesium Level 2.1 mg/dL (1.6-2.6) B-Type Natriuretic Peptide 13.57 pg/mL (0-100) Thyroid Stimulating Hormone (TSH) 1.73 uIU/mL (0.55-4.78) Plasma/Serum Blood Alcohol 228.6 mg/dL (<10) Test 05/13/24 12:00 SARS-CoV-2 Antigen (Rapid) Negative (NEGATIVE) Group A Streptococcus Rapid Negative Other Laboratory Tests 05/14/24 06:34 Brief Hx & Hospital Course: Patient is 44 years old male with past medical history of hypertension, anxiety came with a complaint of cough and chest tightness and fever. As per patient he has been having cough with whitish mucus for last 5 days which has been getting worse lately. Patient also endorsed chest tightness and gargling and wheezing for last 2 days. Further inquiry patient reported fever for last 2 days at home up to 100.4 degree F. patient reported feeling chest tightness for last 2 days. Patient denied any sick contact, palpitation, acute joint pain or swelling, dysuria, abdominal pain, dysarthria or change in vision. Initial lab workup revealed leukopenia and WBC 3.4, chest x-ray revealed multifocal pneumonia. Serum alcohol level 228.6. During Hospitalization patient was treated with IV antibiotic ceftriaxone and azithromycin. Patient was clinically improving. Patient was adamant about going to home. Patient stated he is doing well and wants to go home. Personal count was back to the normal, WBC 4.4 today. Patient was breathing well in room air. Was advised to follow up with the chest x-ray in 3-5 days. Patient was advised to follow up at the discharge clinic at [facility] in 1 week. Patient was discharged with azithromycin 250 mg p.o. daily for 3 days Tamiflu 75 mg p.o. b.i.d. for 4 days. Patient's meds were sent to the pharmacy electronically. Was hemodynamically stable discharge. Past Medical History-Hypertension, anxiety Past Surgical History-none Family History-Mom and dad both have hypertension Past Social History-Personal History/ Social History- history of smoking, history of alcoholism, denies using drugs, lives with mother and father Patient was seen today at the bedside. Patient reports not feeling chest tightness Cardiovascular- deny palpitation Gastrointestinal- denies any rectal bleeding, nausea or vomiting Musculoskeletal-denies acute joint swelling or tenderness or redness Neurological- denies acute dysarthria, dysphagia, change in vision Psychiatry- denies depression or SI or HI Skin- denies acute rash or purpura General examination-patient was unable to complained of poor sentence HEENT- PEERLA, no acute nasal discharge Cardiovascular- S1-S2 audible, rate and rhythm regular, no murmur Respiratory-bilateral lung crackles with congestion in the mid and lower lung zone Gastrointestinal-nontender, bowel sound+. Nondistended Musculoskeletal-no acute joint swelling or tenderness or redness# Lower extremity- no leg edema Neurological- cranial nerves intact, no acute dysarthria or dysphagia Psychiatry- denies depression or SI or HI Skin- no acute rash or purpura Operations or Procedures [facility] [id number] [place] [id number] Ph: [phone] DIAGNOSTIC IMAGING Diagnostic Imaging Report : [id number] Signed PATIENT: JESSICA BEACH EACCT: [id number] UNIT: [id number] : 1980 LOC: ER ROOM / BED: / AGE / SEX: 44 / M ADM STATUS: REG ER SERVICE 1032 ORDERING PHYSICIAN: LIVIER ARCEO PROCEDURE(s): CXR2 - CHEST TWO VIEWS ROUTINE REASON: COUGH FEVER ORDER NUMBER(s): [id number], ACCESSION NUMBER(s): [id number] EXAM: XY CHEST TWO VIEWS ROUTINE CLINICAL HISTORY: COUGH FEVER COMPARISON: None TECHNIQUE: Frontal and lateral view of the chest was obtained FINDINGS: Lines and Tubes: None Lungs: Diffuse consolidative opacities. Pleura: No effusion. No pneumothorax. Cardiomediastinal contours: Unremarkable Bones: No acute osseous abnormality. IMPRESSION: Multifocal pneumonia. ATED BY: ORI MAS MD DICTATED DATE/TIME: 05/13/241046 SIGNED BY: ORI MAS MD SIGNED DATE/TIME: 05/13/241046 CC: Condition at Discharge: Stable Final Diagnosis/Problems List #Suspected sepsis due to pneumonia Gram-positive versus Gram-negative # acute hypoxic respiratory failure likely due to pneumonia Gram-positive versus Gram-negative # influenza type A # transaminitis # acute alcoholism # leukopenia likely due to sepsis # hypertension # anxiety Discharge Disposition: Home Discharge Instruct/Medications Diet: Cardiac 2g Na,low cholest Activity: No Restrictions, As Tolerated Follow Up/Referral: Please follow up at the discharge clinic [facility] in 1 week Please be compliant with the medications Please do physical activity and low-fat diet, recommending for weight reduction Follow up with the primary care physician as scheduled Medications: Azithromycin 250 p.o. daily for 4 days Tamiflu 75 mg b.i.d. for 5 days Discharge Statement: "Patient was advised to return to the ER or call 911 if any headaches, dizziness, shortness of breath, chest pain, abdominal pain, bleeding, fevers, or worsening of medical condition. Patient was counseled about treatment plan, medications, possible side effects, patientverbalized understanding. All questions were answered to the best of my ability. This discharge took greater then 30 minutes in planning, reviewing documentation, counseling the patient, and discussing with other team members." ASSESSMENT ASSESSMENT Assessment #Suspected sepsis due to pneumonia Gram-positive versus Gram-negative # acute hypoxic respiratory failure likely due to pneumonia Gram-positive versus Gram-negative # pneumonia Gram-positive versus Gram-negative # influenza type A # leukopenia likely due to sepsis # hypertension # anxiety Date of Service: May 14, 2024 Billing Provider: CLAYTON HERRING MD Common Visit Codes: 47331-YLV/OBS DISCH DAY >30min STACEY MORALES RESIDENT May 14, 2024 14:39 CLAYTON HERRING MD May 14, 2024 15:34
[2024-05-16 12:05] LABS: Hepatitis B Surface Antigen Negative (Negative)
[2024-05-16 13:26] LABS: Hepatitis C Antibody Negative (Negative)
== END 2024-05-14 13:15 | disposition home or self-care (01) | DRG 720 ==
LOC: ER 10:00 → TELE 14:31 → TELE-EAST 23:05
PROVIDERS: ADMIT Internal Medicine; ATTEND Physician Assistant
DX: A41.50 Gram-negative sepsis, unspecified (principal); J96.01 Acute respiratory failure with hypoxia; J10.08 Influenza due to other identified influenza virus with other specified pneumonia; J15.69 Pneumonia due to other Gram-negative bacteria; Z20.822 Contact with and (suspected) exposure to COVID-19; I10 Essential (primary) hypertension; J15.9 Unspecified bacterial pneumonia; F41.9 Anxiety disorder, unspecified; R74.01 Elevation of levels of liver transaminase levels; Z82.49 Family history of ischemic heart disease and other diseases of the circulatory system
CPT/HCPCS: 36415; 71046; 80048; 80053; 80320; 83605; 83735; 83880; 84443; 85025; 86803; 87040; 87070; 87340; 87426; 87804; 87880; G0378; J2405; J3490

== ENCOUNTER 2024-05-26 11:11 | Emergency (ER) | payer MEDICAID ==
[~2024-05-26] VITALS: Ht 165.1 cm; Wt 108.1 kg
[~2024-05-26 11:11] MED LIST changes: +AZIT-185 PO; -CLIN150C PO; +NIFE1TAB30 PO; +TAMIFLU PO
--- NOTE | 2024-05-26 11:27 | ED.PDOC ---
History of Present Illness HPI Comments 44 Y M with PMHX of HTN, presents to the ED with CC of ETOH withdrawals. Patient relays, that he quit drinking x3 days ago and is now experiencing sweats, tremors, and anxiety. Patient states, that he does drink shooters heavily; denies tobacco usage, or illicit drugs. Patient denies fever, headache, hallucinations, or vomiting. Time Seen by MD: 11:15 Primary Care Provider: UNK Reviewed Notes: Nurses Notes, Medications, Allergies Allergies: Coded Allergies: Amoxicillin (Verified Allergy, Severe, 11/05/17) Home Meds Active Scripts Ondansetron Odt 4MG Tab (ZOFRAN PO) 4 Mg Tb, 4 MG PO Q8HP PRN, #10 TAB ODT TAB-DISSOLVE IN MOUTH, THEN SWALLOW Prov:MODESTO GRAFF MD 05/26/24 Chlordiazepoxide Hcl (Ni-1) (I (Librium) 10 Mg Cap, 10 MG PO BID for 7 Days, #14 CAP Prov:MODESTO GRAFF MD 05/26/24 Oseltamivir Phosphate (Tamiflu) 75 Mg Cap, 75 MG PO BID for 5 Days, #10 CAP Prov:STACEY MORALES RESIDENT 05/14/24 Azithromycin (ZITHROMAX TABLET) 250 Mg Tb, 250 MG PO DAILY for 4 Days, #3 TAB Prov:STACEY MORALES RESIDENT 05/14/24 Ibuprofen Micronized (Ibuprofen) 600 Mg Tab, 600 MG PO Q6HPRN PRN for 5 Days, #20 TAB Prov:MARCK GOMEZ [facility] 02/14/24 Reported Medications Nifedipine (Nifedipine Er) 60 Mg Tab, 1 TAB PO DAILY 05/13/24 Hydrochlorothiazide (Hydrochlorothiazide) 25 Mg Tab, 25 MG PO DAILY, TAB 01/14/17 Nifedipine (Nifedipine Er) 90 Mg Tab, 90 MG PO DAILY for HTN, TAB 01/14/17 Lorazepam (ATIVAN TABLET) 0.5 Mg Tb, 0.5 MG GT DAILY for ANXIETY 01/14/17 Information Source: Patient Mode of Arrival: Ambulatory Severity: Moderate Timing: Days Duration: Since onset Prehospital treatment: None Past Medical History PAST MEDICAL HISTORY: Anxiety, HTN Surgical History: Denies all surgeries Family History Family History: No family hx of HTN Social History Smoker: Non-Smoker Alcohol: Heavy Drugs: Denies Drug Use Lives In: Home Constitutional: reports: chills, sweats; denies: diaphoresis, fatigue, fever, malaise, weakness, others EENTM: denies: blurred vision, double vision, ear bleeding, ear discharge, ear drainage, ear pain, ear ringing, eye pain, eye redness, hearing loss, mouth pain, mouth swelling, nasal discharge, nose bleeding, nose congestion, nose pain, photophobia, tearing, throat pain, throat swelling, voice changes, others Respiratory: denies: cough, hemoptysis, orthopnea, SOB at rest, shortness of breath, SOB with excertion, stridor, wheezing, others Cardiovascular: denies: chest pain, dizzy spells, diaphoresis, Dyspnea on exertion, edema, irregular heart beat, left arm pain, lightheadedness, palpitations, PND, syncope, others Gastrointestinal: denies: abdomen distended, abdominal pain, blood streaked bowels, constipated, diarrhea, dysphagia, difficulty swallowing, hematemesis, melena, nausea, poor appetite, poor fluid intake, rectal bleeding, rectal pain, vomiting, others Genitourinary: denies: burning, dysuria, flank pain, frequency, hematuria, incontinence, penile discharge, penile sore, pain, testicle pain, testicle swelling, urgency, others Neurological: reports: tremors; denies: dizziness, fainting, headache, left sided numbness, left sided weakness, numbness, paresthesia, pre-existing deficit, right sided numbness, right sided weakness, seizure, speech problems, tingling, weakness, others Musculoskeletal: denies: back pain, gout, joint pain, joint swelling, muscle pain, muscle stiffness, neck pain, others Integumetry: denies: bruises, change in color, change in hair/nails, dryness, laceration, lesions, lumps, rash, wounds, others Allergic/Immunocompromised: denies: Difficulty Healing, Frequent Infections, Hives, Itching, others Psychiatric: reports: anxiety; denies: bipolar disorder, depression, hopeless, panic disorder, schizophrenia, sleepless, suicidal, others All Other Systems: Reviewed and Negative Physical Exam General Appearance: No Apparent Distress HEENT: Normal ENT Inspection, Pharynx Normal, TMs Normal Neck: Full Range of Motion, Non-Tender, Normal, Normal Inspection Respiratory: Chest Non-Tender, Lungs Clear, No Accessory Muscle Use, No Respiratory Distress, Normal Breath Sounds Cardiovascular: No Edema, No JVD, No Murmur, No Gallop, Normal Peripheral Pulses, Regular Rate/Rhythm Breast Exam: Deferred Gastrointestinal: No Organomegaly, Non Tender, No Pulsatile Mass, Normal Bowel Sounds, Soft Genitalia: Deferred Pelvic: Deferred Rectal: Deferred Extremities: No calf tenderness, Normal capillary refill, Normal inspection, Normal range of motion, Non-tender, No pedal edema Musculoskeletal : Apperance: Normal Neurologic: Alert, bilingual customer service II-XII nml as Tested, No Motor Deficits, Normal Affect, Normal Mood, No Sensory Deficits Cerebellar Function: Tremor Reflexes: Normal Skin: Dry, Normal Color, Warm Lymphatic: No Adenopathy Was a procedure done? Was a procedure done?: No Differential Dx Considerations may include: ETOH Withdrawals X-Ray, Labs, Meds, VS Vital Signs Date Time Temp Pulse Resp B/P (MAP) Pulse Ox O2 Delivery O2 Flow Rate FiO2 05/26/24 11:58 98.7 101 18 138/82 (100) 94 98.7 05/26/24 11:36 Room Air* 0 21 05/26/24 11:31 97.8 128 16 116/59 (78) 95 05/26/24 11:30 97.8 128 16 116/59 (78) 95 97.8 Current Medications Medications (Trade) Dose Ordered Sig/Dimas Route Start Time Stop Time Status Last Admin Sodium Chloride 1,000 ml @ 1,000 mls/hr Q1H ONCE IV 05/26/24 11:30 05/26/24 12:29 DC 05/26/24 11:35 Lorazepam (Ativan Inj) 1 mg ONCE ONCE IV 05/26/24 11:30 05/26/24 11:31 DC 05/26/24 11:35 Ondansetron HCl (Zofran) 4 mg ONCE ONCE IV 05/26/24 11:30 05/26/24 11:31 DC 05/26/24 11:35 IV Hep-Lock was established The patient was given a 1 L bolus of normal saline The patient was given Ativan 1 mg IV push The patient was given Zofran 4 mg IV push for the nausea and vomiting The patient states that he is feeling better at this time The patient was given alcohol abuse counseling The patient will return to the emergency department's the condition worsens. Time of 1ST Reevaluation: 11:45 Reevaluation 1ST: Unchanged Patient Education/Counseling: Diagnosis, Treatment, Prognosis, Need For Follow Up Family Education/Counseling: No Family Present Departure 1 Departure Time of Disposition: 14:00 Impression: Primary Impression: Alcohol withdrawal Qualified Codes: F10.930 - Alcohol use, unspecified with withdrawal, uncomplicated Additional Impression: Nausea Disposition: HOME / SELF CARE / HOMELESS Condition: Fair e-Prescriptions Ondansetron Odt 4MG Tab (ZOFRAN PO) 4 Mg Tb 4 MG PO Q8HP PRN, #10 TAB ODT TAB-DISSOLVE IN MOUTH, THEN SWALLOW Prov: MODESTO GRAFF MD 05/26/24 Chlordiazepoxide Hcl (Ni-1) (I (Librium) 10 Mg Cap 10 MG PO BID for 7 Days, #14 CAP Prov: MODESTO GRAFF MD 05/26/24 Discharged With: Self Critical Care Note Critical Care Time?: No Stability Stability form required: No Heart Score Heart Score: Heart Score Response (Comments) Value History N/A 0 EKG N/A 0 Age N/A 0 Risk Factors N/A 0 Troponin N/A 0 Total 0 I personally scribed for MODESTO GARFF MD ([email or web address]) on 05/26/24 at 11:27. Electronically submitted by My Colin ([email or web address]). MODESTO GRAFF MD May 26, 2024 11:27
[2024-05-26] MEDS: LORazepam 2MG/ML-1ML VIAL IV ONE (11:35)
[2024-05-26] MEDS: ONDANSETRON HCL 4 MG/2 ML VIAL IV ONE (11:35)
[2024-05-26] MEDS: SODIUM CHLORIDE 0.9% 1,000 ML IV ONE (11:35)
[2024-05-26] MEDS ORDERED: CHL10C PO (12:54)
[2024-05-26] MEDS ORDERED: ZOFR4T PO (12:54)
[2024-05-26 14:00] VITALS: BP 133/89; PULSE 126; RESP 20; TEMP 97.3; O2SAT 97
== END 2024-05-26 14:37 | disposition home or self-care (01) ==
LOC: ER 11:11
DX: F10.930 Alcohol use, unspecified with withdrawal, uncomplicated (principal); I10 Essential (primary) hypertension; F41.9 Anxiety disorder, unspecified; Z79.1 Long term (current) use of non-steroidal anti-inflammatories (NSAID); Z79.899 Other long term (current) drug therapy; Z88.1 Allergy status to other antibiotic agents; Y90.0 Blood alcohol level of less than 20 mg/100 ml
CPT/HCPCS: 96361; 96374; 96375; 99284; J2060; J2405; J7030